=== PATIENT | female | born 1960 | race Caucasian/White ===

== ENCOUNTER 2018-09-04 11:03 | Outpatient (RCR) | payer BC ==
[~2018-09-04 11:03] MED LIST: ADV500INH INH; ALBU83IN NEB; ASPI81TA21 PO; CALC-210 PO; MAGN250T9 PO; MONT10TA2 PO; MUCI60TA7 PO; OMEP40CA2 PO; POTA540T PO; PRED10PA2 PO
== END 2018-09-06 ==
LOC: M PR 11:03
PROVIDERS: ATTEND Internal Medicine Pulmonary Disease
DX: J47.9 Bronchiectasis, uncomplicated (principal)

== ENCOUNTER 2018-10-05 08:19 | Outpatient (RCR) | payer BC ==
[~2018-10-05 08:19] MED LIST changes: -CALC-210 PO; +CALC-239 PO
== END 2018-10-06 ==
LOC: M PR 08:19
PROVIDERS: ATTEND Internal Medicine Pulmonary Disease
DX: J47.9 Bronchiectasis, uncomplicated (principal)

== ENCOUNTER 2018-10-26 13:03 | Outpatient (RCR) | payer BC | END 2018-11-06 | LOC: M PR 13:03 | PROVIDERS: ATTEND Internal Medicine Pulmonary Disease | DX: J47.9 Bronchiectasis, uncomplicated (principal) ==

== ENCOUNTER 2018-11-04 10:49 | Outpatient (RCR) | payer BC | END 2018-11-06 | LOC: M PR 10:49 | PROVIDERS: ATTEND Internal Medicine Pulmonary Disease | DX: J47.9 Bronchiectasis, uncomplicated (principal) ==

== ENCOUNTER → 2018-12-17 | Outpatient (REF) | payer BC | LOC: M LAB LCGH 17:25 | PROVIDERS: ATTEND Physician Assistant | DX: B35.1 Tinea unguium (principal) ==

== ENCOUNTER → 2019-04-23 | Outpatient (REF) | payer BC ==
[~2019-04-23] MED LIST changes: -OMEP40CA2 PO; +OMEP40CA97 PO
== END ==
LOC: M LAB REF 17:30
PROVIDERS: ATTEND Ophthalmology
DX: D23.112 Other benign neoplasm of skin of right lower eyelid, including canthus (principal)

== ENCOUNTER → 2021-03-16 | Outpatient (REF) | payer BC ==
[~2021-03-16] MED LIST changes: +MONT10TA10 PO; -MONT10TA2 PO; +OMEP40CA4 PO; -OMEP40CA97 PO
== END ==
LOC: M LAB REF 16:29
PROVIDERS: ATTEND Physician Assistant
DX: B35.1 Tinea unguium (principal)

== ENCOUNTER 2021-04-13 11:34 | Outpatient (CLI) | payer BC ==
[~2021-04-13] VITALS: Ht 162.6 cm; Wt 81.0 kg
[2021-04-13] VITALS (8 sets, daily range): BP systolic 128–150; BP diastolic 70–86
[2021-04-13] MEDS ORDERED: INFLIXIMAB BIOSIMILAR 400 MG in NS 210 ML IV ONE (12:00)
[2021-04-13] MEDS ORDERED: ACETAMINOPHEN 650MG PO PRIOR TO INFUSION PO ONE (12:00)
[2021-04-13] MEDS ORDERED: diphenhydrAMINE 25MG PO PRIOR TO INFUSION PO ONE (12:00)
[2021-04-13] MEDS ORDERED: NS 1,000 ML IV SCH (12:00)
[2021-04-13 12:18] LABS: HEMATOCRIT 44.7 % (36.0-47.0); HEMOGLOBIN 14.3 g/dl (12.0-15.5); MEAN CORPUSCULAR HEMOGLOBIN 31.7 pg (27.0-33.0); MEAN CORPUSCULAR VOLUME 99.1 fl (80.0-96.0); PLATELET COUNT, AUTOMATED 267 10^3/uL (150-450); RED BLOOD COUNT 4.51 10^6/uL (4.00-5.40); WHITE BLOOD COUNT 9.8 10^3/uL (4.0-10.0)
[2021-04-13] MEDS ORDERED: DILT120C78 PO (12:33)
[2021-04-13] MEDS ORDERED: AZIT-12 PO (12:33)
[2021-04-13 12:51] LABS: ALBUMIN 3.7 GM/DL (3.2-5.2); BILIRUBIN,TOTAL 0.3 MG/DL (0.2-1.0); C REACTIVE PROTEIN QUANTITATIV 0.3 MG/DL (0.00-0.30); CALCIUM LEVEL 9.6 MG/DL (8.8-10.2); CREATININE FOR GFR 1.02 MG/DL (0.55-1.30); GLOMERULAR FILTRATION RATE 58.3 (>45); POTASSIUM SERUM 4.2 MEQ/L (3.5-5.1); TOTAL PROTEIN 7.5 GM/DL (6.4-8.2)
[2021-04-13 13:13] LABS: ERYTHROCYTE SEDIMENTATION RATE 3 mm/hr (0-30)
== END 2021-04-13 15:20 | disposition home or self-care (01) ==
LOC: M INFU 11:34
PROVIDERS: ATTEND Internal Medicine Pulmonary Disease
DX: D86.9 Sarcoidosis, unspecified (principal); Z88.2 Allergy status to sulfonamides; Z88.0 Allergy status to penicillin
CPT/HCPCS: 36592; 80053; 85027; 85652; 86140; 96365; 96366; Q5103

== ENCOUNTER 2021-04-27 12:02 | Outpatient (CLI) | payer BC ==
[2021-04-27] VITALS (7 sets, daily range): BP systolic 123–137; BP diastolic 58–77
[~2021-04-27] VITALS: Ht 162.6 cm; Wt 81.0 kg
[~2021-04-27 12:02] MED LIST changes: +ACETAMINOPHEN 650MG PO PRIOR TO INFUSION PO ONE; +AZIT-12 PO; +DILT120C78 PO; +INFLIXIMAB BIOSIMILAR 400 MG in NS 210 ML IV ONE; +NS 1,000 ML IV SCH; +diphenhydrAMINE 25MG PO PRIOR TO INFUSION PO ONE
[2021-04-27 12:48] LABS: HEMATOCRIT 43.5 % (36.0-47.0); HEMOGLOBIN 13.9 g/dl (12.0-15.5); MEAN CORPUSCULAR HEMOGLOBIN 31.8 pg (27.0-33.0); MEAN CORPUSCULAR VOLUME 99.5 fl (80.0-96.0); PLATELET COUNT, AUTOMATED 262 10^3/uL (150-450); RED BLOOD COUNT 4.37 10^6/uL (4.00-5.40); WHITE BLOOD COUNT 9.1 10^3/uL (4.0-10.0)
[2021-04-27 13:18] LABS: ERYTHROCYTE SEDIMENTATION RATE 4 mm/hr (0-30)
[2021-04-27 13:20] LABS: ALBUMIN 3.5 GM/DL (3.2-5.2); BILIRUBIN,TOTAL 0.3 MG/DL (0.2-1.0); C REACTIVE PROTEIN QUANTITATIV 0.3 MG/DL (0.00-0.30); CALCIUM LEVEL 9.5 MG/DL (8.8-10.2); CREATININE FOR GFR 1.08 MG/DL (0.55-1.30); GLOMERULAR FILTRATION RATE 54.5 (>45); POTASSIUM SERUM 4.7 MEQ/L (3.5-5.1); TOTAL PROTEIN 7.3 GM/DL (6.4-8.2)
== END 2021-04-27 15:17 | disposition home or self-care (01) ==
LOC: M INFU 12:02
PROVIDERS: ATTEND Internal Medicine Pulmonary Disease
DX: D86.9 Sarcoidosis, unspecified (principal); Z88.0 Allergy status to penicillin; Z88.1 Allergy status to other antibiotic agents; Z88.2 Allergy status to sulfonamides; Z88.8 Allergy status to other drugs, medicaments and biological substances
CPT/HCPCS: 80053; 85027; 85652; 86140; 96365; 96366; Q5103

== ENCOUNTER 2021-05-25 11:42 | Outpatient (CLI) | payer BC ==
[~2021-05-25] VITALS: Ht 162.6 cm; Wt 81.0 kg
[~2021-05-25 11:42] MED LIST changes: -ACETAMINOPHEN 650MG PO PRIOR TO INFUSION PO ONE; -INFLIXIMAB BIOSIMILAR 400 MG in NS 210 ML IV ONE; -MONT10TA10 PO; +MONT10TA97 PO; -NS 1,000 ML IV SCH; -diphenhydrAMINE 25MG PO PRIOR TO INFUSION PO ONE
[2021-05-25] MEDS ORDERED: diphenhydrAMINE 25MG PO PRIOR TO INFUSION PO ONE (12:00)
[2021-05-25] MEDS ORDERED: INFLIXIMAB BIOSIMILAR 400 MG in NS 210 ML IV ONE (12:00)
[2021-05-25] MEDS ORDERED: ACETAMINOPHEN 650MG PO PRIOR TO INFUSION PO ONE (12:00)
[2021-05-25] MEDS ORDERED: NS 1,000 ML IV SCH (12:00)
[2021-05-25 12:20] VITALS: BP 132/68
[2021-05-25 12:35] VITALS: BP 132/63
[2021-05-25 13:00] VITALS: BP 128/58
[2021-05-25 13:45] VITALS: BP 127/69
[2021-05-25 14:30] VITALS: BP 136/70
== END 2021-05-25 14:30 | disposition home or self-care (01) ==
LOC: M INFU 11:42
PROVIDERS: ATTEND Internal Medicine Pulmonary Disease
DX: D86.9 Sarcoidosis, unspecified (principal)
CPT/HCPCS: 96365; 96366; Q5103

== ENCOUNTER → 2021-08-24 | Outpatient (CLI) | payer BC ==
[~2021-08-24] MED LIST changes: +ACETAMINOPHEN 650MG PO PRIOR TO INFUSION PO ONE; +INFLIXIMAB BIOSIMILAR 400 MG in NS 210 ML IV ONE; +NS 1,000 ML IV SCH; +diphenhydrAMINE 25MG PO PRIOR TO INFUSION PO ONE
== END ==
LOC: M INFU 08:20
PROVIDERS: ATTEND Internal Medicine Pulmonary Disease
DX: Z53.9 Procedure and treatment not carried out, unspecified reason (principal)

== ENCOUNTER 2021-08-31 08:55 | Outpatient (CLI) | payer BC ==
[~2021-08-31] VITALS: Ht 162.6 cm; Wt 80.9 kg
[~2021-08-31 08:55] MED LIST changes: -ACETAMINOPHEN 650MG PO PRIOR TO INFUSION PO ONE; -INFLIXIMAB BIOSIMILAR 400 MG in NS 210 ML IV ONE; -NS 1,000 ML IV SCH; -diphenhydrAMINE 25MG PO PRIOR TO INFUSION PO ONE
[2021-08-31 09:00] VITALS: BP 127/65
[2021-08-31] MEDS ORDERED: ACETAMINOPHEN 650MG PO PRIOR TO INFUSION PO ONE (09:00)
[2021-08-31] MEDS ORDERED: NS 1,000 ML IV SCH (09:00)
[2021-08-31] MEDS ORDERED: diphenhydrAMINE 25MG PO PRIOR TO INFUSION PO ONE (09:00)
[2021-08-31] MEDS ORDERED: INFLIXIMAB BIOSIMILAR 400 MG in NS 210 ML IV ONE (09:00)
[2021-08-31 09:36] LABS: HEMOGLOBIN 13.3 g/dl (12.0-15.5); MEAN CORPUSCULAR HEMOGLOBIN 31.4 pg (27.0-33.0); MEAN CORPUSCULAR HGB CONC 31.7 g/dl (32.0-36.5); MEAN CORPUSCULAR VOLUME 99.1 fl (80.0-96.0); PLATELET COUNT, AUTOMATED 247 10^3/uL (150-450); RED BLOOD COUNT 4.24 10^6/uL (4.00-5.40); WHITE BLOOD COUNT 10.5 10^3/uL (4.0-10.0)
[2021-08-31 10:01] LABS: ALBUMIN 3.3 GM/DL (3.2-5.2); ALT/SGPT 32 U/L (12-78); BILIRUBIN,TOTAL 0.3 MG/DL (0.2-1.0); BLOOD UREA NITROGEN 20 MG/DL (7-18); CALCIUM LEVEL 8.9 MG/DL (8.8-10.2); CARBON DIOXIDE LEVEL 33 MEQ/L (21-32); CHLORIDE LEVEL 111 MEQ/L (98-107); CREATININE FOR GFR 0.88 MG/DL (0.55-1.30); GLOMERULAR FILTRATION RATE > 60.0 (>45); GLUCOSE, FASTING 88 MG/DL (70-100); POTASSIUM SERUM 4.1 MEQ/L (3.5-5.1); SODIUM LEVEL 145 MEQ/L (136-145); TOTAL PROTEIN 6.6 GM/DL (6.4-8.2)
[2021-08-31 10:13] LABS: ERYTHROCYTE SEDIMENTATION RATE 5 mm/hr (0-30)
[2021-08-31 10:35] VITALS: BP 135/72
[2021-08-31 10:50] VITALS: BP 131/71
[2021-08-31 11:35] VITALS: BP 126/72
[2021-08-31 12:05] VITALS: BP 133/69
== END 2021-08-31 12:05 | disposition home or self-care (01) ==
LOC: M INFU 08:55
PROVIDERS: ATTEND Internal Medicine Pulmonary Disease
DX: D86.9 Sarcoidosis, unspecified (principal); Z88.0 Allergy status to penicillin; Z88.1 Allergy status to other antibiotic agents
CPT/HCPCS: 36592; 80053; 85027; 85652; 86140; 96413; 96415; Q5103

== ENCOUNTER 2021-09-28 08:34 | Outpatient (CLI) | payer BC ==
[~2021-09-28] VITALS: Ht 162.6 cm; Wt 82.0 kg
[~2021-09-28 08:34] MED LIST changes: +ACETAMINOPHEN 650MG PO PRIOR TO INFUSION PO ONE; +INFLIXIMAB BIOSIMILAR 400 MG in NS 210 ML IV ONE; +NS 1,000 ML IV SCH; +diphenhydrAMINE 25MG PO PRIOR TO INFUSION PO ONE
[2021-09-28 08:40] VITALS: BP 165/77
[2021-09-28 09:01] LABS: HEMATOCRIT 42.4 % (36.0-47.0); HEMOGLOBIN 13.6 g/dl (12.0-15.5); MEAN CORPUSCULAR HEMOGLOBIN 31.6 pg (27.0-33.0); MEAN CORPUSCULAR HGB CONC 32.1 g/dl (32.0-36.5); MEAN CORPUSCULAR VOLUME 98.6 fl (80.0-96.0); PLATELET COUNT, AUTOMATED 286 10^3/uL (150-450); WHITE BLOOD COUNT 9.2 10^3/uL (4.0-10.0)
[2021-09-28 09:36] LABS: ALBUMIN 3.3 GM/DL (3.2-5.2); ALT/SGPT 32 U/L (12-78); BILIRUBIN,TOTAL 0.3 MG/DL (0.2-1.0); BLOOD UREA NITROGEN 13 MG/DL (7-18); CALCIUM LEVEL 9.1 MG/DL (8.8-10.2); CARBON DIOXIDE LEVEL 35 MEQ/L (21-32); CHLORIDE LEVEL 108 MEQ/L (98-107); CREATININE FOR GFR 0.88 MG/DL (0.55-1.30); GLOMERULAR FILTRATION RATE > 60.0 (>45); GLUCOSE, FASTING 77 MG/DL (70-100); POTASSIUM SERUM 3.8 MEQ/L (3.5-5.1); SODIUM LEVEL 143 MEQ/L (136-145); TOTAL PROTEIN 6.9 GM/DL (6.4-8.2)
[2021-09-28 09:40] LABS: ERYTHROCYTE SEDIMENTATION RATE 5 mm/hr (0-30)
[2021-09-28 10:01] VITALS: BP 146/76
[2021-09-28 10:30] VITALS: BP 145/88
[2021-09-28 11:01] VITALS: BP 139/86
[2021-09-28 11:45] VITALS: BP 161/82
== END 2021-09-28 11:45 | disposition home or self-care (01) ==
LOC: M INFU 08:34
PROVIDERS: ATTEND Internal Medicine Pulmonary Disease
DX: D86.9 Sarcoidosis, unspecified (principal); Z88.0 Allergy status to penicillin; Z88.1 Allergy status to other antibiotic agents; Z88.2 Allergy status to sulfonamides; Z88.8 Allergy status to other drugs, medicaments and biological substances
CPT/HCPCS: 36592; 80053; 85027; 85652; 86140; 96413; 96415; Q5103